=== PATIENT | female | born 1935 | race Caucasian/White ===

== ENCOUNTER 2023-02-11 06:07 | Day surgery (SDC) | payer OTHER, BC ==
[2023-02-11 06:59] VITALS: BP 130/80; PULSE 78; RESP 18; TEMP 97.8; BMI 19.3
[2023-02-11] MEDS ORDERED: ceFAZolin SODIUM 1 GM VIAL ONE (07:15)
[2023-02-11] MEDS ORDERED: BUPIVACAINE HCL/PF 0.5% (5MG/ML) 10 ML VIAL ONE (07:15)
[2023-02-11] MEDS ORDERED: POVIDONE-IODINE 5% OPHTHALMIC PREP 30 ML SOLUTION ONE (07:15)
[2023-02-11] MEDS ORDERED: LIDOCAINE 1%-EPI 1:100,000 30 ML MDV IJ ONE (07:15)
[2023-02-11] MEDS ORDERED: ERYTHROMYCIN 0.5% OPHTHALMIC OINTMENT 3.5 GM TUBE ONE (07:15)
[2023-02-11] MEDS ORDERED: TETRACAINE 0.5% OPHTH SOLN 2 ML BOTTLE ONE (07:15)
[2023-02-11] MEDS ORDERED: THROMBIN (BOVINE) 5,000 UNIT VIAL TP ONE (07:16)
[2023-02-11] MEDS ORDERED: PROPOFOL 20 ML ONE (07:18)
[2023-02-11] MEDS ORDERED: MIDAZOLAM HCL 2 MG/2 ML SINGLE DOSE VIAL ONE (07:18)
== END 2023-02-11 08:30 | disposition home or self-care (01) ==
LOC: FASU 06:07
PROVIDERS: ATTEND Ophthalmology
PROC: 08SP0ZZ Reposition Left Upper Eyelid, Open Approach (ICD-10-PCS; principal; 2023-02-11)
PROC: 08SN0ZZ Reposition Right Upper Eyelid, Open Approach (ICD-10-PCS; 2023-02-11)
DX: Z53.09 Procedure and treatment not carried out because of other contraindication (principal); H02.423 Myogenic ptosis of bilateral eyelids
CPT/HCPCS: 82962

== ENCOUNTER 2023-03-18 06:06 | Day surgery (SDC) | payer OTHER, BC ==
[2023-03-14 14:07] VITALS: BMI 19.3
[2023-03-18] MEDS ORDERED: ONDANSETRON 4 MG/2 ML VIAL IVPUSH PRN (07:16)
[2023-03-18] MEDS ORDERED: MIDAZOLAM HCL 2 MG/2 ML SINGLE DOSE VIAL ONE (07:20)
[2023-03-18] MEDS ORDERED: PROPOFOL 40 ML ONE (07:20)
[2023-03-18] MEDS ORDERED: LACTATED RINGERS SOLUTION 1,000 ML IV SCH (07:30)
[2023-03-18] MEDS ORDERED: ceFAZolin SODIUM 1 GM VIAL ONE (08:00)
[2023-03-18] MEDS ORDERED: DEXAMETHASONE SOD PHOSPHATE 4 MG/1 ML VIAL ONE (08:35)
[2023-03-18] MEDS ORDERED: NALOXONE HCL 0.4 MG/ML VIAL ONE (08:35)
[2023-03-18] MEDS ORDERED: FENTANYL CITRATE/PF 50 MCG/ML VIAL ONE (09:37)
[2023-03-18] MEDS ORDERED: oxyCODONE HCL 5 MG TABLET PO ONE (10:35)
[2023-03-18] MEDS ORDERED: ACETAMINOPHEN 325 MG TABLET (FP) ONE (10:42)
[2023-03-18 11:17] VITALS: RESP 18
[2023-03-18 11:24] VITALS: BP 118/86; PULSE 65; TEMP 98.2
== END 2023-03-18 11:25 | disposition home or self-care (01) ==
LOC: FASU 06:06
PROVIDERS: ATTEND Ophthalmology
PROC: 08SN0ZZ Reposition Right Upper Eyelid, Open Approach (ICD-10-PCS; 2023-03-18)
PROC: 08SP0ZZ Reposition Left Upper Eyelid, Open Approach (ICD-10-PCS; principal; 2023-03-18 08:04)
DX: H02.423 Myogenic ptosis of bilateral eyelids (principal)
CPT/HCPCS: 82962; 94760